=== PATIENT | male | born 1960 | race Caucasian/White ===

== ENCOUNTER 2021-01-19 09:25 | Outpatient (CLI) | payer OTHER, MEDICARE, SELFPAY ==
--- NOTE | ~2021-01-19 | XR_ITS ---
EXAMINATION: XR foot LT min 3V DATE: 01/19/2021 09:49 INDICATION: Left foot pain TECHNIQUE: Dorsoplantar, two oblique and lateral views of the left foot were obtained. COMPARISON: None. FINDINGS: 3 degree hallux valgus. Alignment is otherwise normal. No fracture. Mild to moderate osteoarthritis a t the first metatarsophalangeal joint. Remaining joint spaces are relatively preserved. Soft tissues are unremarkable. IMPRESSION: 1. Hallux valgus with mild to moderate osteoarthritis at the first metatarsophalangeal joint. Reviewed, dictated and finalized at location A. IMPRESSION: 1. Hallux valgus with mild to moderate osteoarthritis at the first metatarsopha langeal joint.
[2021-01-19 09:38] LABS: Basophils Absolute Auto 0.05 K/mm3 (0.00-0.10); Basophils Percent Auto 0.4 % (0.0-1.0); Eosinophils Percent Auto 1.7 % (1.0-6.0); Hemoglobin 16.3 g/dL (14.0-18.0); Immature Granulocyte Absolute 0.04 K/mm3 (0.00-0.00); Immature Granulocyte Percent A 0.3 % (0.0-0.0); Lymphocytes Absolute Auto 2.89 K/mm3 (1.10-4.50); Lymphocytes Percent Auto 24.2 % (18.0-42.0); Mean Corpuscular Hemoglobin 32.2 pg (27.0-31.0); Mean Corpuscular Volume 94.9 fL (78.0-102.0); Mean Platelet Volume 10.7 fl (8.7-11.0); Monocytes Absolute Auto 0.92 K/mm3 (0.10-0.90); Monocytes Percent Auto 7.7 % (2.0-11.0); Neutrophils Absolute Auto 7.9 K/mm3 (1.7-7.2); Neutrophils Percent Auto 65.7 % (50.0-70.0); Platelet Count Result 239 K/mm3 (150-420); Red Blood Count 5.06 M/mm3 (4.70-6.10); Red Cell Distribution Width 12.2 % (11.6-14.4)
[2021-01-19 10:27] LABS: Alanine Aminotransferase 39 U/L (16-63); Albumin Level 4.2 g/dL (3.4-5.0); Alkaline Phosphatase 74 U/L (46-116); Anion Gap 10 mmol/L (8-16); Aspartate Amino Transferase 22 U/L (15-37); Bilirubin,Total 0.7 mg/dL (0.00-1.00); Blood Urea Nitrogen 15 mg/dL (7-18); Calcium 9.5 mg/dL (8.5-10.1); Carbon Dioxide 28 mmol/L (21-32); Chloride 101 mmol/L (98-108); Estimated Glomerular Filt Rate 59; Glucose 95 mg/dL (70-99); Osmolality Calculated 288 mOsm/kg (285-295); Potassium 4.7 mmol/L (3.5-5.1); Sodium 139 mmol/L (136-145)
== END 2021-01-19 09:26 | disposition home or self-care (01) ==
LOC: CHSLAB 09:30
PROVIDERS: PCP Family Medicine; Visit Provider Family Medicine
DX: M79.672 Pain in left foot (principal)
CPT/HCPCS: 36415; 73630; 80048; 80053; 84550; 85025; 85380

== ENCOUNTER 2022-04-20 10:57 | Outpatient (CLI) | payer OTHER, MEDICARE, SELFPAY ==
--- NOTE | ~2022-04-20 | XR_ITS ---
XR elbow RT min 3V 04/20/2022 11:18 Indication: Right elbow pain after fall Procedure: 4 views right elbow Comparison: No prior studies for comparison. Findings: There is a possible avulsion fracture of the olecranon process seen on the lateral view. Mi ld dorsal soft tissue swelling. No significant joint effusion. No foreign bodies. Impression: 1: Possible avulsion fracture of the olecranon process seen on lateral view. Correlate for point tend erness. Reviewed, dictated and finalized at location A. Impression: 1: Possible avulsion fracture of the olecranon process seen on lateral view. Co rrelate for point tenderness.
== END 2022-04-20 10:58 | disposition home or self-care (01) ==
LOC: CHSIMG 11:04
PROVIDERS: PCP Family Medicine; Visit Provider Family Medicine
DX: M25.521 Pain in right elbow (principal)
CPT/HCPCS: 73080

== ENCOUNTER 2025-01-31 07:50 | Outpatient (CLI) | payer MEDICARE, SELFPAY ==
--- NOTE | ~2025-01-31 | US_ITS ---
Limited Abdominal Sonogram: Real-time sonographic imaging of the right upper quadrant was performed. Clinical History: Abnormal liver enzymes Findings: The liver appears echogenic with no evidence of mass lesion or bile duct dilatation. Main portal vein demonstrates normal direction of flow. The gallbladder is well distended, with no evidenc e of gallstone or pericholecystic fluid. Focal area of ringdown artifact suggest focal cholesterolosi s or adenomyomatosis. The common bile duct measures 4 mm. The visualized pancreas, aorta, and IVC ar e unremarkable. Impression: Diffuse fatty infiltration of liver. Findings suggestive of focal gallbladder cholesterolosis or adenomyomatosis. Reviewed, dictated and finalized at location M. Impression: Diffuse fatty infiltration of liver. Findings suggestive of focal gallbladder cholesterolosis or adenomyomatosis.
--- OUTSIDE RECORDS SUMMARY | 2025-01-31 07:59 | XMS_ITS | Clinical Summary ---
Author Organization [facility] Address [facility] [place] [address] Care Team Providers Care Rejector Name Role Phone Balwinder Lipscomb MD Primary Care Provider [phone] Allergies Active Allergy Reactions Criticality Noted Date Comments Pravastatin Other (see comment) 04/26/2022 Adverse reaction. Medications traMADol 50 MG tablet Take 1 tablet by mouth 2 (two) times daily. 02/08/2022 Active lansoprazole 15 MG capsule Take 1 capsule by mouth daily. 07/04/2021 Active aspirin 325 MG tablet Take 1 tablet by mouth daily. 12/25/2007 Active Family History Medical History Relation Comments Heart Disease Father Heart Disease Mother Relation Status Comments Father Mother Social History Tobacco Use Types Packs/Day Years Used Date Smoking Tobacco: Former Cigarettes Smokeless Tobacco: Never Alcohol Use Standard Drinks/Week Comments Not Currently 0 (1 standard drink = 0.6 oz pur e alcohol) Sex and Gender Information Value Date Recorded Sex Assigned at Not on file Legal Sex Male 8:45 PM CDT Gender Identity Not on file Sexual Orientation Not on file Last Filed Vital Signs Vital Sign Reading Time Taken Comments Blood Pressure 128/93 01/21/2011 9:27 AM CDT Pulse 62 01/21/2011 9:27 AM CDT Temperature - - Respiratory Rate 18 01/21/2011 9:27 AM CDT Oxygen Saturation - - Inhaled Oxygen Concentration - - Weight 93 kg (205 lb) 04/26/2022 3:25 PM CDT Height 180.3 cm (5' 11 ) 04/26/2022 3:25 PM CDT Body Mass Index 28.59 04/26/2022 3:25 PM CDT Plan of Treatment Health Maintenance Due Date Last Done Comments Colorectal Cancer Screening Colonoscopy (10 Years) 1958 Hepatitis C 1976 Zoster Vaccines (1 of 2) 2008 DTaP, Tdap and Td Vaccines ( 2 - Td or Tdap) 03/21/2022 03/21/2012, 06/05/2002 Annual Medicare Wellness Visit 2023 Pneumococcal Vaccine: 65+ Years (1 of 1 - PCV) 2023 COVID-19 Vaccine (4 - 2023-2 5 season) 2024 11/09/2021, 05/08/2021, 04/17/2021 RSV Immunization or 60+ Years (1 - 1-dose 75+ series) 2033 Meningococcal B Vaccine Aged Out No l onger eligible based on patient's age to complete this topic Meningococcal Vaccine Aged Out No jesus keyur eligible based on patient's age to complete this topic RSV Immunizations Under 20 Months Aged Out No longer eligible b ased on patient's age to complete this topic Insurance [facility] Care Teams Rejector Relationship Specialty Start Date End Date Balwinder Lipscomb MD [address], [place] [id number] PCP - General FAMILY PRACTICE 04/26/22
== END 2025-01-31 07:51 | disposition home or self-care (01) ==
PROVIDERS: PCP Family Medicine; Visit Provider Family Medicine
DX: R74.01 Elevation of levels of liver transaminase levels (principal); K76.0 Fatty (change of) liver, not elsewhere classified
CPT/HCPCS: 76705